=== PATIENT | male | born 1950 | race Two or more races ===

== ENCOUNTER 2016-11-23 13:17 | Inpatient (IN) | payer OTHER, MEDICAID ==
[~2016-11-23] VITALS: Ht 170.2 cm; Wt 75.3 kg
[2016-11-23] MEDS ORDERED: IV SET PRIMARY PUMP SET 1 EA INFUS.SET MC ONE ×3 (13:28→17:21)
[2016-11-23] MEDS ORDERED: IV NS 0.9% 1,000 ML ONE (13:28)
[2016-11-23] MEDS ORDERED: PANTOPRAZOLE 40 MG VIAL IV ONE (13:30)
[2016-11-23] MEDS ORDERED: IV NS 0.9% 1,000 ML BAG IV ONE (13:30)
--- NOTE | 2016-11-23 13:30 | NUR ---
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 Patient is aao4, denies abdominal pain at this time. Skin is warm to touch and non diaphoretic, Afebrile. Iv on left hand noted patient. Emesis bag provided,. hob elevated. Gowned and placed on tele monitor, Md Coy at for eval
[2016-11-23] MEDS ORDERED: PANTOPRAZOLE 40 MG VIAL ONE (13:33)
--- NOTE | 2016-11-23 13:35 | NUR ---
Medicated pt as ordered, Will cont to monitor
[2016-11-23 13:44] LABS: BASOPHILS # (AUTO) 0.2 /CMM (0.0-0.2); BASOPHILS % (AUTO) 3.5 % (0.0-2.0); EOSINOPHILS % (AUTO) 0.3 % (0.0-6.0); HEMATOCRIT 29 % (39-51); HEMOGLOBIN 9.9 g/dL (13.5-17.5); LYMPHOCYTES # (AUTO) 1.3 /CMM (0.8-4.8); LYMPHOCYTES % (AUTO) 18.9 % (20.0-44.0); MEAN CORPUSCULAR HEMOGLOBIN 31 PG (26.0-33.0); MEAN CORPUSCULAR HGB CONC 34 g/dl (31.0-36.0); MEAN CORPUSCULAR VOLUME 92 fL (80-96); MONOCYTES # (AUTO) 0.5 /CMM (0.1-1.30); MONOCYTES % (AUTO) 6.5 % (2.0-12.0); NEUTROPHILS # (AUTO) 5.1 /CMM (1.8-8.9); NEUTROPHILS % (AUTO) 70.8 % (43.0-81.0); PLATELET COUNT (AUTO) 109 /CMM (150-450); RDW COEFFICIENT OF VARIATION 13.4 (11.5-15.0); RED BLOOD CELL COUNT(AUTO) 3.17 MIL/uL (4.5-6.0); WHITE BLOOD COUNT (AUTO) 7.1 K/uL (4.3-11.0)
[2016-11-23 13:55] LABS: CALCIUM, SERUM 8.2 mg/dL (8.5-10.1); CREATININE 1.1 mg/dL (0.6-1.3); POTASSIUM 4.5 mmol/L (3.5-5.1)
[2016-11-23 14:00] LABS: ALBUMIN 2.7 g/dL (3.4-5.0); BILIRUBIN,DIRECT 0.2 mg/dL (0.0-0.2); BILIRUBIN,TOTAL 0.9 mg/dL (0.2-1.0)
[2016-11-23 14:02] LABS: TROPONIN I 0.082 ng/mL (0.00-0.056)
[2016-11-23 14:11] LABS: INR 1.05 (0.87-1.13)
--- NOTE | 2016-11-23 14:25 | NUR ---
PAGED [facility] --- WAITING FOR CALL BACK FROM DR BEEBE.
--- NOTE | 2016-11-23 14:40 | NUR ---
REPORT GIVEN TO RICHARD LACY FOR [facility] ROOM 113-1
[2016-11-23] MEDS ORDERED: LOSA50TA21 PO (14:42)
[2016-11-23] MEDS ORDERED: GLIP5TAB13 PO (14:42)
[2016-11-23] MEDS ORDERED: PRAV10TA40 PO (14:42)
[2016-11-23] MEDS ORDERED: SAXA5TAB PO (14:42)
[2016-11-23] MEDS ORDERED: METF10002 PO (14:42)
[2016-11-23] MEDS ORDERED: OMEG-9 PO (14:42)
[2016-11-23] MEDS ORDERED: ISOS30TA6 PO (14:42)
[2016-11-23] MEDS ORDERED: METO-304 PO (14:42)
--- NOTE | 2016-11-23 15:27 | NUR ---
PT SAFELY TRANSFERRED PER PROTOCOL.
[2016-11-23] MEDS ORDERED: ONDANSETRON HCL/PF 4 MG/2 ML VIAL IVP PRN (15:30)
[2016-11-23] MEDS ORDERED: Z GUARD REMEDY 2 OZ OINT TP PRN (15:30)
[2016-11-23] MEDS ORDERED: ZOLPIDEM TARTRATE 5 MG TABLET PO PRN (15:30)
[2016-11-23] MEDS ORDERED: MORPHINE SULFATE INJ 2 MG/ML DISP.SYRIN IV PRN (15:30)
[2016-11-23] MEDS ORDERED: MAG HYDROX/AL HYDROX/SIMETH 30 ML UDC PO PRN (15:30)
[2016-11-23] MEDS ORDERED: MAGNESIUM HYDROXIDE 30 ML UDC PO PRN (15:30)
[2016-11-23] MEDS ORDERED: HYDROCODONE/APAP 5/325MG 1 EACH TABLET PO PRN (15:30)
[2016-11-23 16:00] VITALS: BP_SYST 130; BP_DIAS 56; BP_DIAS 62
[2016-11-23] MEDS: IV D5/0.45 NACL 1,000 ML IV PRN (16:17)
[2016-11-23] MEDS: PANTOPRAZOLE 80 MG in IV NS 0.9% 500 ML IV PRN (17:25)
--- NOTE | 2016-11-23 18:34 | NUR ---
SEAM RUBBING MACHINE OPERATOR NOTES PT RESTING IN BED WITH NO ACUTE CHANGES NOTED, ALL DUE MEDS GIVEN, ALL NEEDS MET, PT STABLE AND WILL ENDORSE TO PM NURSE.
[2016-11-23 20:00] VITALS: BP 132/54
--- NOTE | 2016-11-23 20:00 | NUR ---
RECEIVED PATIENT IN BED AA&O X 4.VS STABLE.TELE SR PER MONITOR.NO ECTOPIES NOTED.ON RA SATURATION 97%RESPIRATION EVEN AND UNLABORED.Dx: GI BLEED.IVF INFUSING WITH PROTONIX DRIP TO LEFT HAND SITE INTACT. DENIES PAIN, NAUSEA OR VOMITING.NO BM NOTED AT THIS TIME.PLAN OF CARE DISCUSSED WITH PATIENT VERBALIZED UNDERSTANDING.SAFETY CHECKED WITH CALL LIGHT AT BEDSIDE.
--- NOTE | 2016-11-23 22:00 | NUR ---
AMBULATORY TO RESTROOM.PER PATIENT HAD BLACK SOFT STOOLS X 1.CONTINUE TO MONITOR.
[2016-11-24] VITALS (10 sets, daily range): BP systolic 112–136; BP diastolic 38–79
[2016-11-24] MEDS: PANTOPRAZOLE 80 MG in IV NS 0.9% 500 ML IV PRN ×2 (03:08→14:21)
[2016-11-24] MEDS: IV D5/0.45 NACL 1,000 ML IV PRN ×2 (04:52→21:29)
--- NOTE | 2016-11-24 06:00 | NUR ---
PATIENT RESTING VERBALIZED HAD ANOTHER SOFT BLACK STOOL.DENIES PAIN ,NAUSEA OR VOMITING.IVF AND PROTONIX DRIP INFUSING WELL.NEEDS ATTENDED.WILL INFORM MD ABOUT TROPONIN.2D ECHO DONE PENDING RESULT.
[2016-11-24 07:08] LABS: BASOPHILS % (AUTO) 0.5 % (0.0-2.0); EOSINOPHILS % (AUTO) 1.2 % (0.0-6.0); HEMATOCRIT 22 % (39-51); HEMOGLOBIN 7.6 g/dL (13.5-17.5); LYMPHOCYTES # (AUTO) 1.2 /CMM (0.8-4.8); LYMPHOCYTES % (AUTO) 26.8 % (20.0-44.0); MEAN CORPUSCULAR HEMOGLOBIN 32 PG (26.0-33.0); MEAN CORPUSCULAR HGB CONC 35 g/dl (31.0-36.0); MEAN CORPUSCULAR VOLUME 91 fL (80-96); MONOCYTES # (AUTO) 0.3 /CMM (0.1-1.30); MONOCYTES % (AUTO) 6.6 % (2.0-12.0); NEUTROPHILS # (AUTO) 2.8 /CMM (1.8-8.9); NEUTROPHILS % (AUTO) 64.9 % (43.0-81.0); PLATELET COUNT (AUTO) 90 /CMM (150-450); RDW COEFFICIENT OF VARIATION 14.4 (11.5-15.0); RED BLOOD CELL COUNT(AUTO) 2.39 MIL/uL (4.5-6.0); WHITE BLOOD COUNT (AUTO) 4.3 K/uL (4.3-11.0)
[2016-11-24] MEDS ORDERED: PANTOPRAZOLE 40 MG TABLET.DR PO SCH (07:30)
--- NOTE | 2016-11-24 07:30 | NUR ---
RN NOTE: RECEIVED PATIENT WHILE RESTING IN BED, A/OX 4. PATIENT BREATHING EVEN AND UNLABORED ON ROOM AIR. NO SOB, NO PAIN/DISTRESS. NO ACTIVE BLEEDING NOTED AT THIS TIME. PATIENTS NEEDS ATTENDED TO, SAFETY MEASURES IN PLACE, WILL CONTINUE TO MONITOR.
[2016-11-24 07:39] LABS: CALCIUM, SERUM 7.7 mg/dL (8.5-10.1); MAGNESIUM 1.6 mg/dL (1.8-2.4); PHOSPHORUS 2.3 mg/dL (2.5-4.9); POTASSIUM 3.9 mmol/L (3.5-5.1)
[2016-11-24 08:44] LABS: ANISOCYTOSIS 1+; BAND % (MANUAL) 3 % (0.0-5.0); EOSINOPHILS % (MANUAL) 5 % (0-4); HYPOCHROMASIA 1+; LYMPHOCYTES % (MANUAL) 28 % (16-48); MONOCYTES % (MANUAL) 5 % (0-11.0); NEUTROPHILS % (MANUAL) 59 (42-76); PLATELET ESTIMATE DECREASED
[2016-11-24] MEDS: METOPROLOL SUCCINATE 50 MG TAB.SR.24H PO SCH (09:18)
[2016-11-24] MEDS ORDERED: MAGNESIUM OXIDE 400 MG TABLET PO ONE (10:00)
--- NOTE | 2016-11-24 10:20 | NUR ---
RN NOTE: DR. ROSE CONSULTED WITH PATIENT, PLACED PATIENT NPO. PER DR. ROSE DO NOT REPLACE MAGNESIUM AT THIS TIME. MEDICATION NOT ADMINISTERED, WILL CONTINUE TO MONITOR.
--- NOTE | 2016-11-24 12:15 | NUR ---
RN NOTE: EGD ORDERED FOR PATIENT PER DR. ROSE. PATIENT EXPLAINED PROCEDURE AND IS CONSENTING TO PROCEDURE. PROCEDURE CONSENT SIGNED, ANESTHESIA CONSENT SIGNED, AND BLOOD TRANSFUSION CONSENT SIGNED. ALL PAPERWORK PLACED IN CHART, WILL CONTINUE TO MONITOR.
[2016-11-24 15:55] LABS: THYROID STIMULATING HORMONE 0.458 uIU/mL (0.358-3.74)
[2016-11-24] MEDS ORDERED: DEXTROSE 50%-WATER 50 ML DISP.SYRIN IV PRN (16:00)
[2016-11-24 17:11] LABS: RETICULOCYTE COUNT 3.8 % (0.6-2.5)
[2016-11-24] MEDS: BLOOD SUGAR DIAGNOSTIC 1 EACH STRIP IN SCH ×2 (17:39→21:18)
[2016-11-24] MEDS: INSULIN REGULAR, HUMAN 100 UNIT/ML 3 ML VIAL SQ PRN ×2 (17:40→21:29)
[2016-11-24] MEDS ORDERED: BLOOD IV SET 1 EA INFUS.SET MC ONE (17:52)
[2016-11-24] MEDS ORDERED: IV NS 0.9% 250 ML IV ONE (17:52)
--- NOTE | 2016-11-24 18:15 | NUR ---
RN NOTE: BLOOD BANK CONFIRMED 1 UNIT PRBC IS READY. VERIFIED BLOOD AT BLOOD BANK, THEN ONCE AGAIN AT BEDSIDE WITH SECOND NURSE. PATIENT'S BLOOD TRANSFUSION STARTED. PATIENT HAS LOW GRADE FEVER OF 99.9 PRIOR TO TRANSFUSION. TYLENOL ADMINISTERED PRECAUTION WITH SMALL SIP OF WATER. NO COMPLICATIONS NOTED, WILL CONTINUE TO MONITOR.
[2016-11-24] MEDS: ACETAMINOPHEN 325 MG TABLET PO PRN (18:29)
--- NOTE | 2016-11-24 20:00 | NUR ---
AGRICULTURAL PRODUCTION ENGINEER - RECEIVED PATIENT AWAKE IN BED, A/OX 4. PATIENT BREATHING EVEN AND UNLABORED ON ROOM AIR. NO SOB, NO PAIN/DISTRESS. NO ACTIVE BLEEDING NOTED AT THIS TIME. PATIENTS NEEDS ATTENDED TO, SAFETY MEASURES IN PLACE, WILL CONTINUE TO MONITOR.
--- NOTE | 2016-11-24 21:44 | NUR ---
JUST TALKED TO PT DAUGHTER, SHE WILL SEND A PICTURE OF BUSINESS CARD FOR PRIMARY DOCTOR WITH NAME AND NUMBER TO PT CELL PHONE SO WE CAN TRY TO GET MEDICAL RECORDS
[2016-11-25] VITALS (19 sets, daily range): BP systolic 96–134; BP diastolic 33–73
[2016-11-25] MEDS: PANTOPRAZOLE 80 MG in IV NS 0.9% 500 ML IV PRN ×2 (03:40→18:05)
--- NOTE | 2016-11-25 07:18 | NUR ---
RN INITIAL NOTES: Rec'd pt asleep on bed, A&O x3, not in any distress. Pt on room air, no SOB noted. Pt has L hand G18 IV line w/ D5 1/2 NS at 75 cc/hr & Protonix drip 8mg/hr, infusing well, patent, C/D/I, no signs of infection/ infiltration noted. Instructed NPO for EGD procedure. Verbalized understanding. Call light placed w/in reached. Bed kept low & in locked position. Will continue to monitor.
[2016-11-25 07:34] LABS: BASOPHILS % (AUTO) 0.5 % (0.0-2.0); EOSINOPHILS % (AUTO) 0.6 % (0.0-6.0); HEMATOCRIT 23 % (39-51); HEMOGLOBIN 7.8 g/dL (13.5-17.5); LYMPHOCYTES # (AUTO) 0.8 /CMM (0.8-4.8); LYMPHOCYTES % (AUTO) 26.2 % (20.0-44.0); MEAN CORPUSCULAR HEMOGLOBIN 31 PG (26.0-33.0); MEAN CORPUSCULAR HGB CONC 34 g/dl (31.0-36.0); MEAN CORPUSCULAR VOLUME 89 fL (80-96); MONOCYTES # (AUTO) 0.3 /CMM (0.1-1.30); MONOCYTES % (AUTO) 10.2 % (2.0-12.0); NEUTROPHILS # (AUTO) 1.9 /CMM (1.8-8.9); NEUTROPHILS % (AUTO) 62.5 % (43.0-81.0); PLATELET COUNT (AUTO) 81 /CMM (150-450); RDW COEFFICIENT OF VARIATION 14.1 (11.5-15.0); RED BLOOD CELL COUNT(AUTO) 2.55 MIL/uL (4.5-6.0)
[2016-11-25 07:43] LABS: CALCIUM, SERUM 7.2 mg/dL (8.5-10.1); CREATININE 1.1 mg/dL (0.6-1.3); POTASSIUM 3.7 mmol/L (3.5-5.1)
[2016-11-25 08:14] LABS: BAND % (MANUAL) 2 % (0.0-5.0); LYMPHOCYTES % (MANUAL) 24 % (16-48); MONOCYTES % (MANUAL) 7 % (0-11.0); NEUTROPHILS % (MANUAL) 67 (42-76); PLATELET ESTIMATE DECREASED
[2016-11-25 08:15] LABS: ANISOCYTOSIS 1+
[2016-11-25] MEDS: ACETAMINOPHEN 325 MG TABLET PO PRN (08:22)
[2016-11-25] MEDS: BLOOD SUGAR DIAGNOSTIC 1 EACH STRIP IN SCH ×4 (08:22→22:34)
[2016-11-25] MEDS: INSULIN REGULAR, HUMAN 100 UNIT/ML 3 ML VIAL SQ PRN ×3 (08:30→22:40)
[2016-11-25] MEDS ORDERED: LIDOCAINE HCL/PF 1% 30 ML SDV IJ ONE (08:30)
[2016-11-25] MEDS: METOPROLOL SUCCINATE 50 MG TAB.SR.24H PO SCH (09:00)
--- NOTE | 2016-11-25 10:30 | NUR ---
RN NOTES: Pt to OR for EGD procedure.
--- NOTE | 2016-11-25 11:15 | NUR ---
RN NOTES: Rec'd pt from OR s/p EGD, VS as follows: T98.5, HR 69, RR 19, O2 sat 98%, BP 97/46. Call light w/in reached. Bed kept low & in locked pos.
[2016-11-25 11:36] LABS: ALBUMIN 2.4 g/dL (3.4-5.0); BILIRUBIN,DIRECT 0.3 mg/dL (0.0-0.2); BILIRUBIN,TOTAL 0.9 mg/dL (0.2-1.0); TOTAL PROTEIN, SERUM 5.5 g/dL (6.4-8.2)
--- NOTE | 2016-11-25 12:20 | NUR ---
RN NOTES: Noted by son to obtain medical records from PCP, will be faxing the documents to [facility].
[2016-11-25] MEDS: IV D5/0.45 NACL 1,000 ML IV PRN (12:21)
[2016-11-25 12:23] LABS: VIT D, 25-HYDROXY 14.5 ng/mL (30.0-100.0)
--- NOTE | 2016-11-25 12:37 | NUR ---
RN NOTES: Dr. Hampton informed of EGD result and hgb level today 7.8 and with orders noted and carried out. To transfuse second unit PRBC today.
--- NOTE | 2016-11-25 13:01 | NUR ---
RN NOTES: Referred to Dr. Bailey for diet and if Protonix need to continue, as per MD continue Protonix drip and order for diet 2 gms N+ noted and carried out.
--- NOTE | 2016-11-25 14:40 | NUR ---
RN NOTES: Pt instructed to call NOD for any untoward signs & symptoms of BT reactions - chills, fever, chest pain, . Pt verbalized understanding.
--- NOTE | 2016-11-25 14:40 | NUR ---
RN NOTES: Pt started on 1 unit PRBC BT as ordered. VS monitored. WOF any BT reactions.
[2016-11-25] MEDS ORDERED: IV NS 0.9% 250 ML IV ONE (14:41)
[2016-11-25] MEDS ORDERED: BLOOD IV SET 1 EA INFUS.SET MC ONE (14:42)
[2016-11-25 16:03] LABS: HEPATITIS A AB, TOTAL Positive (Negative); HEPATITIS B SURFACE AB Non Reactive (.); HEPATITIS C VIRUS AB 0.1 s/co ratio (0.0-0.9)
--- NOTE | 2016-11-25 16:55 | NUR ---
RN NOTES: Materials for Bone Marrow Biopsy procedure completed, at bedside.
--- NOTE | 2016-11-25 18:00 | NUR ---
RN NOTES: BT of 1 unit PRBC done. VSS. No BT reactions noted.
--- NOTE | 2016-11-25 18:44 | NUR ---
RN CLOSING NOTES: Pt remained stable post BT, not in any distress. Pt L hand IV line, patent, intact, no signs of infection noted. All needs attended. Safety & comfort measures provided. Endorsed to PM nurse for continuity of care.
--- NOTE | 2016-11-25 19:04 | NUR ---
RN NOTES: Referred to Dr. Hampton pt's IVF D5 1/2 NS, pt is already eating. As per KENDRICK ALCANTAR IVF.
--- NOTE | 2016-11-25 19:30 | NUR ---
RN INITIAL NOTES: Rec'd pt awake in bed, A&O x3, not in any distress. Pt on room air, no SOB noted. Pt has L hand G18 IV. Protonix drip 8mg/hr, infusing well, patent, C/D/I, no signs of infection/ infiltration noted. Call light placed w/in reached. Bed kept low & in locked position. Will continue to monitor.
--- NOTE | 2016-11-25 22:00 | NUR ---
REGULATORY AFFAIRS SPEC NOTE BLOOD SUGAR 202. 4 UNITS OF SLIDING SCALE INSULIN GIVEN. WILL CONTINUE TO MONITOR.
[2016-11-26] VITALS: BP 116/51
[2016-11-26 04:00] VITALS: BP_SYST 112; BP_SYST 116; BP_DIAS 42; BP_DIAS 51
[2016-11-26] MEDS: PANTOPRAZOLE 80 MG in IV NS 0.9% 500 ML IV PRN ×2 (04:50→15:12)
--- NOTE | 2016-11-26 06:05 | NUR ---
RECTIFICATION PRINTER NOTE PATIENT STABLE. NO DISCOMFORT AT THIS TIME. BMBX FOR THIS AM. ALL NEEDS MET AND ATTENDED TO. WILL ENDORSE TO DAY SHIFT FOR JACOBO.
[2016-11-26] MEDS: INSULIN REGULAR, HUMAN 100 UNIT/ML 3 ML VIAL SQ PRN ×4 (06:41→22:05)
--- NOTE | 2016-11-26 06:43 | NUR ---
SOLAR ENERGY INSTALLATION MANAGER NOTE BLOOD SUGAR 193. 3 UNITS SLIDING SCALE GIVEN. WILL CONTINUE TO MONITOR.
--- NOTE | 2016-11-26 07:10 | NUR ---
RN NOTES: RECEIVED PT ON BED, A/Ox3 ,RESPIRATION EVEN AND UNLABORED , NO SOB NOTED , L HAND IV SITE G #18 CDI, PROTONIX GTT AT 8MG/HR RUNNING VIA L HAND IV , SR UP x3, CALL LIGHT WITHIN EASY REACH , BED LOCKED AND IN LOWEST POSITION , WILL CONTINUE TO MONITOR PT CLOSELY AND NOTIFY MD FOR ANY SIGNIFICANT CHANGES.
[2016-11-26 07:18] LABS: CARCINOEMBRYONIC AG (CEA) 3.6 ng/mL (0.0-4.7)
[2016-11-26] MEDS: BLOOD SUGAR DIAGNOSTIC 1 EACH STRIP IN SCH ×4 (07:49→22:07)
[2016-11-26 08:00] VITALS: BP 124/59
[2016-11-26] MEDS: METOPROLOL SUCCINATE 50 MG TAB.SR.24H PO SCH (08:07)
--- NOTE | 2016-11-26 10:35 | NUR ---
RN NOTES BONE MARROW BX DONE AT THE BEDSIDE BY DR SOSA. PT STABLE, PRESSURE DRESSING APPLIED ON THE SITE , VSS STABLE, CONTINUE TO MONITOR PT CLOSELY
[2016-11-26 11:35] LABS: HEPATITIS B CORE AB, IgM Negative (Negative); HEPATITIS B CORE AB, TOTAL Negative (Negative); HEPATITIS B SURFACE AB Non Reactive (.); HEPATITIS C VIRUS AB <0.1 s/co ratio (0.0-0.9)
--- NOTE | 2016-11-26 14:00 | NUR ---
RN NOTES PT UP AND WALKING AROUND NURSING STATION , BANDIED TO BX SITE CDI, .CONTINUE TO MONITOR .
[2016-11-26 14:45] LABS: BASOPHILS % (AUTO) 0.3 % (0.0-2.0); EOSINOPHILS % (AUTO) 0.8 % (0.0-6.0); HEMATOCRIT 29 % (39-51); HEMOGLOBIN 9.9 g/dL (13.5-17.5); LYMPHOCYTES # (AUTO) 1.1 /CMM (0.8-4.8); LYMPHOCYTES % (AUTO) 27.4 % (20.0-44.0); MEAN CORPUSCULAR HEMOGLOBIN 31 PG (26.0-33.0); MEAN CORPUSCULAR HGB CONC 34 g/dl (31.0-36.0); MEAN CORPUSCULAR VOLUME 90 fL (80-96); MONOCYTES # (AUTO) 0.4 /CMM (0.1-1.30); MONOCYTES % (AUTO) 9.9 % (2.0-12.0); NEUTROPHILS # (AUTO) 2.4 /CMM (1.8-8.9); NEUTROPHILS % (AUTO) 61.6 % (43.0-81.0); PLATELET COUNT (AUTO) 100 /CMM (150-450); RDW COEFFICIENT OF VARIATION 14.6 (11.5-15.0); RED BLOOD CELL COUNT(AUTO) 3.22 MIL/uL (4.5-6.0); WHITE BLOOD COUNT (AUTO) 3.8 K/uL (4.3-11.0)
[2016-11-26 15:04] LABS: CALCIUM, SERUM 7.3 mg/dL (8.5-10.1); POTASSIUM 4.2 mmol/L (3.5-5.1)
[2016-11-26 16:00] VITALS: BP 134/59
--- NOTE | 2016-11-26 18:16 | NUR ---
RN NOTES PT KEELY ANY DISTRESS , REMAINS STABLE, MEDICATED PER MD ORDER , NO SIGNIFICANT CHANGES NOTED ON THIS SHIFT .
--- NOTE | 2016-11-26 19:30 | NUR ---
MS1/RN RECEIVE PATIENT AWAKE, ALERT, ORIENTED, COMFORTABLE, NO C/O PAIN, NO DISTRESS NOTED, PROTONIX DRIP INFUSING, CALL LIGHT IN REACH. WILL MONITOR.
[2016-11-26 20:00] VITALS: BP 106/68
[2016-11-27] MEDS: PANTOPRAZOLE 80 MG in IV NS 0.9% 500 ML IV PRN ×2 (02:02→11:54)
--- NOTE | 2016-11-27 03:00 | NUR ---
MS1/RN PATIENT IS SLEEPING AT THIS TIME, AROUSABLE, APPEAR COMFORTABLE, NO DISTRESS NOTED, CALL LIGHT IN REACH. WILL CONTINUE TO MONITOR.
[2016-11-27 04:00] VITALS: BP 119/58
--- NOTE | 2016-11-27 06:29 | NUR ---
MS/RN AWAKE, TALKING ON THE PHONE. ALL NEEDS ATTENDED AT THIS TIME. WILL CONTINUE TO MONITOR.
[2016-11-27 06:47] LABS: BASOPHILS % (AUTO) 0.4 % (0.0-2.0); EOSINOPHILS # (AUTO) 0.1 /CMM (0.0-0.7); HEMATOCRIT 26 % (39-51); HEMOGLOBIN 9.2 g/dL (13.5-17.5); LYMPHOCYTES % (AUTO) 33.5 % (20.0-44.0); MEAN CORPUSCULAR HEMOGLOBIN 31 PG (26.0-33.0); MEAN CORPUSCULAR HGB CONC 35 g/dl (31.0-36.0); MEAN CORPUSCULAR VOLUME 90 fL (80-96); MONOCYTES # (AUTO) 0.3 /CMM (0.1-1.30); MONOCYTES % (AUTO) 9.8 % (2.0-12.0); NEUTROPHILS # (AUTO) 1.6 /CMM (1.8-8.9); NEUTROPHILS % (AUTO) 54.3 % (43.0-81.0); PLATELET COUNT (AUTO) 92 /CMM (150-450); RDW COEFFICIENT OF VARIATION 14.7 (11.5-15.0); RED BLOOD CELL COUNT(AUTO) 2.94 MIL/uL (4.5-6.0); WHITE BLOOD COUNT (AUTO) 2.9 K/uL (4.3-11.0)
[2016-11-27 06:55] LABS: CALCIUM, SERUM 7.2 mg/dL (8.5-10.1); CREATININE 0.9 mg/dL (0.6-1.3); MAGNESIUM 1.8 mg/dL (1.8-2.4); PHOSPHORUS 2.7 mg/dL (2.5-4.9); POTASSIUM 3.6 mmol/L (3.5-5.1)
[2016-11-27] MEDS: INSULIN REGULAR, HUMAN 100 UNIT/ML 3 ML VIAL SQ PRN ×2 (07:23→11:56)
[2016-11-27] MEDS: BLOOD SUGAR DIAGNOSTIC 1 EACH STRIP IN SCH ×2 (07:23→11:54)
[2016-11-27 08:00] VITALS: BP 114/57
--- NOTE | 2016-11-27 08:00 | NUR ---
RN NOTE: RECEIVED PATIENT AWAKE, ALERT, AND ORIENTED X3, AMBULATORY WITH BRP. MEDSURG STATUS. ON RA NO RESPIRATORY DISTRESS NOTED. LEFT HAND 18g PATENT AND INTACT RUNNING PROTONIX DRIP. IV SITE CLEAN AND DRY NO REDNESS OR INFILTRATION NOTED. MORNING CARE RENDERED. VS STABLE. BEDDING CHANGED. PATIENT MADE COMFORTABLE AND ALL NEEDS MET. SAFETY MEASURES OBSERVED. CALL LIGHT WITHIN REACH. ONGOING MONITORING.
[2016-11-27] MEDS: METOPROLOL SUCCINATE 50 MG TAB.SR.24H PO SCH (08:31)
[2016-11-27 09:32] LABS: BAND % (MANUAL) 2 % (0.0-5.0); EOSINOPHILS % (MANUAL) 1 % (0-4); LYMPHOCYTES % (MANUAL) 21 % (16-48); MONOCYTES % (MANUAL) 4 % (0-11.0); NEUTROPHILS % (MANUAL) 72 (42-76)
[2016-11-27 09:33] LABS: ANISOCYTOSIS 1+; PLATELET ESTIMATE DECREASED
[2016-11-27 16:00] VITALS: BP 103/56
[2016-11-27] MEDS ORDERED: OMEP40CA37 PO (16:22)
--- NOTE | 2016-11-27 17:30 | NUR ---
SENIOR ADMINISTRATIVE ASSOCIATE NOTE: PATIENT IN STABLE CONDITION,PATIENT ALERT AND ORIENTED X3 AMBULATORY. DISCHARGED HOME, EDUCATION PROVIDED BOTH VERBALLY AND WRITTEN. DISCHARGE CARE RENDERED. IV REMOVED, TIP INTACT, NO BLEEDING NOTED, PRESSURE APPLIED AND DRESSING APPLIED. PATIENT INSTRUCTED TO MAKE APPOINTMENTS WITH PRIMARY CARE PHYSICIAN, F/U WITH DR. WALTON ON TUESDAY AT 3PM PER APPT AND FOLLOW UP WITH DR. ROSE. PATIENT AND VERBALIZE UNDERSTANDING.
== END 2016-11-27 17:58 | disposition home or self-care (01) | DRG 377 ==
LOC: ER 13:19 → TELE-TD 14:59 → TELE1 15:25 → MEDSG1 11-26 09:41
PROVIDERS: ADMIT Internal Medicine; ATTEND Internal Medicine
PROC: 30233N1 Transfusion of Nonautologous Red Blood Cells into Peripheral Vein, Percutaneous Approach (ICD-10-PCS; 2016-11-24)
PROC: 0DB68ZX Excision of Stomach, Via Natural or Artificial Opening Endoscopic, Diagnostic (ICD-10-PCS; principal; 2016-11-25 13:30)
PROC: 07DR3ZX Extraction of Iliac Bone Marrow, Percutaneous Approach, Diagnostic (ICD-10-PCS; 2016-11-26)
DX: K25.4 Chronic or unspecified gastric ulcer with hemorrhage (principal); I21.4 Non-ST elevation (NSTEMI) myocardial infarction; D61.818 Other pancytopenia; K76.6 Portal hypertension; D62 Acute posthemorrhagic anemia; E11.9 Type 2 diabetes mellitus without complications; E78.5 Hyperlipidemia, unspecified; I25.10 Atherosclerotic heart disease of native coronary artery without angina pectoris; Z95.1 Presence of aortocoronary bypass graft; E61.1 Iron deficiency; E66.9 Obesity, unspecified; Z79.84 Long term (current) use of oral hypoglycemic drugs; Z90.49 Acquired absence of other specified parts of digestive tract; R16.1 Splenomegaly, not elsewhere classified; Z68.26 Body mass index [BMI] 26.0-26.9, adult
CPT/HCPCS: 36415; 71010-TC; 76700-TC; 80048-TC; 80061-TC; 80076-TC; 82272-TC; 82306; 82378; 82728-TC; 82746; 82962-TC; 83690-TC; 83735-TC; 84100-TC; 84443-TC; 84484-TC; 84550-TC; 85025-TC; 85045-TC; 85652-TC; 85730-TC; 86704; 86705; 86706; 86709-TC; 86803; 86850-TC; 86921-TC; 87081-TC; 88305-TC; 88313-TC; 88342; 93307-TC; 93976-TC; A4606; C9113; J1815; J2704; J3490; J7030; J7040; J7050; P9016-BL; Z7610